=== PATIENT | male | born 1995 | race Caucasian/White ===

== ENCOUNTER 2024-12-31 02:16 | Emergency (ER) | payer SELFPAY ==
--- NOTE | ~2024-12-31 | XR_ITS ---
CLINICAL HISTORY: pain constipation 1 view abdomen Comparison: None provided Findings: Bowel-gas pattern is normal. No abnormal calcifications are seen. No acute osseous abnormality is identified. IMPRESSION: The bowel gas pattern is within normal limits This document has been electronically signed by: Kevin Batista on 12/31/2024 05:22:49
[2024-12-31 02:22] VITALS: BP 111/71; PULSE 74; RESP 18; TEMP 36.4; O2SAT 98; BMI 25.4
[2024-12-31 02:45] VITALS: BP 117/83; PULSE 74; RESP 16; TEMP 36.8; O2SAT 98
--- NOTE | 2024-12-31 02:48 | PC.NURSE ---
pt presents with c/o 60 lb weight loss unintentional over the last couple months. he believes he may have had some blood in his stool. The most concerning to him is a white spot in his mouth, it has been present for over a month and has not changed in size but now has a bump near it. v/s WNL, respirations even and unlabored.
[2024-12-31 03:36] LABS: MANUAL DIFF FLAG NO
[2024-12-31 03:52] LABS: Alanine Aminotransferase 28 U/L (0-40); Albumin Level 4.0 g/dL (3.5-5.0); Alkaline Phosphatase 82 U/L (39-117); Anion Gap 10 (12-20); Aspartate Amino Transferase 25 U/L (5-37); Blood Urea Nitrogen 20 mg/dL (9-16); Calcium 8.7 mg/dL (8.4-10.2); Carbon Dioxide 26 mmol/L (22-29); Chloride 109 mmol/L (96-108); Creatinine Clr Calc Pharmacy 130.1; Estimated Glomerular Filt Rate > 60; Potassium 3.6 mmol/L (3.3-5.1); Sodium 141 mmol/L (135-145); Total Protein 6.0 g/dL (6.5-8.0)
[2024-12-31 03:53] LABS: Hematocrit 39.4 % (42.0-52.0); Hemoglobin 14.1 g/dl (14.0-18.0); Imm Gran Abs Auto 0.02 X10*3/uL (0.00-0.03); Imm Gran Pct Auto 0.2 % (0.0-0.4); Lymphocytes Absolute Auto 2.7 X10*3/uL (1.2-4.9); Mean Corpuscular HGB Conc 35.8 g/dl (31.0-36.0); Mean Corpuscular Hemoglobin 29.3 pg (27.0-33.0); Mean Corpuscular Volume 81.9 fL (80.0-98.0); NRBC Abs Auto 0.000 X10*3/uL (0.0-0.012); NRBC Pct Auto 0.0 /100WBC (0.0-0.2); Platelet Count 232 X10*3/uL (160-400); Red Blood Count 4.81 X10*6/uL (4.60-5.80); White Blood Count 8.7 X10*3/uL (4.8-10.8)
--- OUTSIDE RECORDS SUMMARY | 2024-12-31 03:56 | XMS_ITS | Clinical Summary ---
Author Organization [facility] Address [address] [place] [id number] Phone Care Team Providers Care Traveling Phlebotomist Name Role Phone Marcelo Tijerina DO Primary Care Provider [phone] Allergies Active Allergy Reactions Criticality Noted Date Comments Sertraline Anaphylaxis High 10/04/2020 Medications No known medications Active Problems No known active problems Social History Tobacco Use Types Packs/Day Years Used Date Smoking Tobacco: Never Smokeless Tobacco: Never Education Answer Date Recorded Are you interested in more education? Not on randell e 07/25/2022 Are you concerned about learning? Not on file 07/25/2022 No 07/25/2022 No 07/25/2022 Digital Access Answer Date Recorded No 08/23/2022 No 08/23/2022 No 08/23/2022 Reliable internet access at home? Not on file 08/23/2022 Device with a working camera? Not on file Sex and Gender Information Value Date Recorded Sex Assigned at Not on file Legal Sex Male 6:37 PM EDT Gender Identity Male 04/11/2023 3:36 PM EST Sexual Orientation Not on file Last Filed Vital Signs Vital Sign Reading Time Taken Comments Blood Pressure 132/76 04/11/2023 3:46 PM EST Pulse 82 04/11/2023 3:46 PM EST Temperature 37.6 C (99.6 F) 04/11/2023 3:46 PM EST Respiratory Rate 16 04/11/2023 3:46 PM EST Oxygen Saturation 99% 04/11/2023 3:46 PM EST Inhaled Oxygen Concentration - - Weight 79.4 kg (175 lb) 04/11/2023 3:46 PM EST Height 172.7 cm (5' 8 ) 04/11/2023 3:46 PM EST Body Mass Index 26.61 04/11/2023 3:46 PM EST Plan of Treatment Health Maintenance Due Date Last Done Comments DEPRESSION SCREENING 2007 HEPATITIS C SCREENING 2013 HIV ONE-TIME SCREENING (18-6 5 YEARS) 2013 INFLUENZA VACCINE (#1) 2024 COVID-19 VACCINE (3 - 2024-2 6 season) 2024 11/23/2020, 10/29/2020 Adult Td,Tdap Booster 06/08/2032 06/08/2022 SMOKING STATUS SCREENING (On ce After 26 Yrs) Completed 10/04/2020 HEPATITIS A VACCINES Aged Out No long er eligible based on patient's age to complete this topic HIB VACCINES Aged Out No longer eligi ble based on patient's age to complete this topic MENINGOCOCCAL VACCINES (ACWY) Aged Out No longer eligible based on patient's age to complete this topic MENINGOCOCCAL VACCINES (B) Aged Out N o longer eligible based on patient's age to complete this topic PNEUMOCOCCAL VACCINES (0-49 years) Aged Out No longer eligible b ased on patient's age to complete this topic Medical Devices Not on file Insurance [facility] [employer]IG[employer] PPO Member Subscriber Plan / Payer (Ef fective 2019-Present) Name:Jaiden Foreman Relation to Subscriber:Self Name:Jaiden Foreman Payer ID:[id number] (NAIC) Type:PPO Address: [address] [place] [employer] C[employer] PPO CIGNA PPO CIGNA PPO Member Subscriber Plan / Payer (Ef fective 2019-Present) Name:Jaiden Foreman Relation to Subscriber:Self Name:Jaiden Foreman Payer ID:[id number] (NAIC) Type:PPO Address: [address] [facility] [place] [place] [id number] CIGNA PPO CIGNA PPO Member Subscriber Plan / Payer (Ef fective 2019-Present) Name:Jaiden Foreman Relation to Subscriber:Self Name:Jaiden Foreman Payer ID:[id number] (NAIC) Type:PPO Address: [address] [facility] CIGNA PPO [place] CIGNA PPO [facility] Care Teams Traveling Phlebotomist Relationship Specialty Start Date End Date Marcelo Tijerina DO [address] [place] [address] PCP - General Internal Medicine 10/04/20 Additional Source Comments The information contained in this document represents components of the legal health record. It is not the complete legal health record.[facility]
[2024-12-31 04:28] LABS: OBS Int Ctl Valid YES; OBS1 NEGATIVE (NEGATIVE)
--- NOTE | 2024-12-31 05:36 | ED_ITS ---
HPI - General Adult General Chief complaint: General Medical Stated complaint: Gen Med Time Seen by Provider: 12/31/24 03:52 Source: patient Limitations: no limitations History of Present Illness ED Provider: Elsy Cole PA-C HPI narrative: 29-year-old male who is otherwise healthy, presents with multiple complaints. Patient states he has been noting bright red blood per rectum after having bowel movements. Denies rectal pain, purulent drainage or fever. Denies presence of external hemorrhoids. Patient admits he has modified his diet, and that he exercises on a regular basis. He is concerned because he has lost 60 lb in the last 3 months, which is more than he has a expected. Lastly, complains of a white patch inside his mouth that has been there for a month and a half. He has not seen his dentist's. It is not painful it is not pruritic, he has no dental pain. Related Data Allergies Allergy/AdvReac Type Severity Reaction Status Date / Time sertraline (From Zoloft) Allergy Anaphylaxis Verified 12/31/24 02:27 Review of Systems 2 Review of Systems: Yes all other systems are reviewed and are negative Constitutional: Constitutional: Denies fatigue and Denies fever(s) ENT: Denies dental pain and Denies sore throat Cardiovascular: Cardiovascular: Denies chest pain Gastrointestinal: Gastrointestinal: Denies abdominal pain, Denies melena, Denies bloating, Reports hematochezia, Denies constipation, Denies diarrhea, Denies nausea and Denies vomiting Endocrine: Endocrine: Denies fatigue PMFSH Past Medical History Attestation statement: The following information was validated with the patient. Social History Social History Smoked in Last 30 Days: No Use of substances other than those prescribed or required for medical reasons: Yes Substance Use Type: Marijuana Advance Directives: No Advance Directives Information Provided: Yes Physical Exam ED Vital Signs: Vital Signs - 24 hr 12/31/24 02:22 12/31/24 02:45 Temperature 97.5 F 98.2 F Pulse Rate 74 74 Respiratory Rate 18 16 Blood Pressure 111/71 117/83 Pulse Oximetry 98 98 Oxygen Delivery Method Room Air Room Air BMI result Body Mass Index 25.4 Const Other: Alert well-appearing Orientation/consciousness: patient oriented x3 HENMT Other: A long buccal mucosa right upper mouth, there is a faint region that appears more white versus flesh-colored, it is not palpable, it looks as if he could have bit the inner part of his cheek Resp Effort & Inspection: normal respiratory effort Cardio Other: Normal peripheral perfusion GI Other: Abdomen is soft nontender no guarding, no external hemorrhoids noted, stool brown no bright red blood per rectum, guaiac negative Skin Other: Warm dry no rash Neuro General: patient oriented x3, gait normal, no focal motor deficits and CN's II- XI intact bilaterally Psych Other: Cooperative Medical Decision Making Medical Decision Making MDM Narrative: 29-year-old male who is otherwise healthy, presents with multiple complaints. Patient states he has been noting bright red blood per rectum after having bowel movements. Denies rectal pain, purulent drainage or fever. Denies presence of external hemorrhoids. Patient admits he has modified his diet, and that he exercises on a regular basis. He is concerned because he has lost 60 lb in the last 3 months, which is more than he has a expected. Lastly, complains of a white patch inside his mouth that has been there for a month and a half. He has not seen his dentist's. It is not painful it is not pruritic, he has no dental pain. No chronic issues History: Per patient I have considered the following differential diagnoses: Lower GI bleeding, hemorrhoids, thrombosed hemorrhoid, aphthous ulcer, oral trauma, cancer, candidal infection Plan: Patient's exam was completely benign, he is coming in with complaints he has had for months. In regard to the rectal bleeding, guaiac negative, there was no external hemorrhoids, I obtained a KUB he is not overtly constipated. He likely has a internal hemorrhoids, I told him he needs to have a colonoscopy as an outpatient. In regard to the oral lesion, it appears as if it is a scar as if he at some point bit his inner cheek, I told him he needs to follow up with his dentist, that maybe they would biopsy it, it looks benign in appearance at this time. All of his screening labs are completely stable, the patient is very healthy in appearance, I suspect he has lost weight secondary to his dietary changes and exercise. I have independently reviewed the following tests: Labs: No leukocytosis, not anemic, no electrolyte abnormality, guaiac negative, KUB:Findings: Bowel-gas pattern is normal. No abnormal calcifications are seen. No acute osseous abnormality is identified. IMPRESSION: The bowel gas pattern is within normal limits Differential Diagnosis Differential Diagnoses: The differential diagnosis associated with the presentation includes See medical decision Admission/Observation Consideration of admission/observation: Escalation of care including admission/observation considered Not applicable Lab Data MDM Lab Attestation statement: I reviewed the patient's lab results. 12/31/24 03:33 12/31/24 03:33 Labs: Lab Results 12/31/24 12/31/24 Range/Units 03:33 04:09 WBC 8.7 (4.8-10.8) X10*3/uL RBC 4.81 (4.60-5.80) X10*6/uL Hgb 14.1 (14.0-18.0) g/dl Hct 39.4 L (42.0-52.0) % MCV 81.9 (80.0-98.0) fL MCH 29.3 (27.0-33.0) pg MCHC 35.8 (31.0-36.0) g/dl RDW 12.3 (11.0-16.0) % Plt Count 232 (160-400) X10*3/uL MPV 11.3 (9.4-12.4) fL Immature Gran % (Auto) 0.2 (0.0-0.4) % Neut % (Auto) 59.2 (45-73) % Lymph % (Auto) 31.4 (20-40) % Anderson % (Auto) 7.7 (2-11) % Eos % (Auto) 1.0 (0-4) % Baso % (Auto) 0.5 (0-2) % Lymph # (Auto) 2.7 (1.2-4.9) X10*3/uL Anderson # (Auto) 0.7 (0.1-1.2) X10*3/uL Eos # (Auto) 0.1 (0.0-0.4) X10*3/uL Baso # (Auto) 0.0 (0.0-0.2) X10*3/uL Abs Immat Gran (auto) 0.02 (0.00-0.03) X10*3/uL Absolute Neuts (auto) 5.2 (2.0-8.3) x10*3/uL Absolute Nucleated RBC 0.000 (0.0-0.012) X10*3/uL Nucleated RBC % (auto) 0.0 (0.0-0.2) /100WBC Sodium 141 (135-145) mmol/L Potassium 3.6 (3.3-5.1) mmol/L Chloride 109 H (96-108) mmol/L Carbon Dioxide 26 (22-29) mmol/L Anion Gap 10 L (12-20) BUN 20 H (9-16) mg/dL Creatinine 0.81 (0.5-1.4) mg/dL Estim Creat Clear Calc 130.1 Estimated GFR > 60 Random Glucose 81 (60-115) mg/dL Calcium 8.7 (8.4-10.2) mg/dL Total Bilirubin 0.4 (0.0-1.0) mg/dL AST 25 (5-37) U/L ALT 28 (0-40) U/L Alkaline Phosphatase 82 (39-117) U/L Total Protein 6.0 L (6.5-8.0) g/dL Albumin 4.0 (3.5-5.0) g/dL Stool Occult Blood NEGATIVE (NEGATIVE) Radiology Impression Discussion of test interpretation with radiology: I have reviewed the radiologist's reading. Discharge Plan Discharge Clinical Impression: Rectal bleed Patient Disposition: Home, Self-Care Instructions: Rectal Bleeding (ED) Additional Instructions: All of your labs were completely normal, you were not passing blood in your stool per our test. There were no acute findings on the x-ray of your abdomen. You are likely experiencing bleeding while straining to have a bowel movement, it is likely associated with hemorrhoids. In regard to your weight loss, you need to establish primary care, the remainder of your assessment would occur as an outpatient. In regard to the oral lesion, you need to follow up with your dentist, you may require a biopsy. Interventions: ED Discharge Assessment Last Done: 12/31/24 05:54 Discharge Date/Time: 12/31/24 05:56 Print Language: Czech
[2024-12-31 05:54] VITALS: BP 115/63; PULSE 62; RESP 16; TEMP 36.4; O2SAT 98
== END 2024-12-31 05:56 | disposition home or self-care (01) ==
PROVIDERS: Physician Assistant Medical; Emergency Provider Emergency Medicine
DX: K62.5 Hemorrhage of anus and rectum (principal); R10.22 Pelvic and perineal pain left side; Z79.899 Other long term (current) drug therapy
CPT/HCPCS: 36415; 74018; 80053; 82272; 85025; 99283; 99284

== ENCOUNTER → 2024-12-31 03:53 | Outpatient (BNV) | payer SELFPAY | PROVIDERS: Emergency Provider Emergency Medicine; Visit Provider Radiology Vascular & Interventional Radiology | DX: K59.00 Constipation, unspecified (principal) | CPT/HCPCS: 74018 ==